=== PATIENT | male | born 1965 | race Caucasian/White ===

== ENCOUNTER 2017-02-07 16:37 | Emergency (ER) | payer SELFPAY ==
[~2017-02-07] VITALS: Ht 182.9 cm; Wt 96.4 kg
[2017-02-07] MEDS ORDERED: BLOOD THINNER (16:49)
[2017-02-07 20:05] VITALS: BP 158/100
== END 2017-02-07 20:05 | disposition home or self-care (01) ==
LOC: ED 16:37
DX: M79.641 Pain in right hand (principal); M25.531 Pain in right wrist; S67.3 Crushing injury of wrist; X58.XXXD Exposure to other specified factors, subsequent encounter; I10 Essential (primary) hypertension; Z79.01 Long term (current) use of anticoagulants; Z86.73 Personal history of transient ischemic attack (TIA), and cerebral infarction without residual deficits; R56.9 Unspecified convulsions; R55 Syncope and collapse